=== PATIENT | male | born 1960 | race African-American/Black ===

== ENCOUNTER 2016-09-20 09:33 | Emergency (ER) | payer OTHER ==
[~2016-09-20] VITALS: Ht 172.7 cm; Wt 89.4 kg
[~2016-09-20 09:33] MED LIST: NORVASC10 M1 PO; OXYCODONE HCL5 MG PO; SEROQUEL100 MG PO; ZOFRAN ODT8 MG PO
[2016-09-20] MEDS ORDERED: PEPCID40 MG PO (11:13)
[2016-09-20] MEDS ORDERED: PREDNISONE10 MG PO (11:13)
[2016-09-20 11:48] VITALS: BP 119/81
== END 2016-09-20 11:57 | disposition home or self-care (01) ==
LOC: EME 09:33
DX: T63.441A Toxic effect of venom of bees, accidental (unintentional), initial encounter (principal); I12.9 Hypertensive chronic kidney disease with stage 1 through stage 4 chronic kidney disease, or unspecified chronic kidney disease; N18.3 Chronic kidney disease, stage 3 (moderate)
CPT/HCPCS: 99281; 99283; J1200; J2930; S0028